=== PATIENT | female | born 1990 | race American Indian/Alaskan Native ===

== ENCOUNTER 2018-06-07 19:23 | Outpatient (CLI) | payer SELFPAY ==
[2018-06-07] MEDS ORDERED: LACTATED RINGERS 1,000 ML IV ONE (19:28)
[2018-06-07 19:41] VITALS: BP 120/67
[2018-06-07 19:58] LABS: Bacteria,Urine 1+ /HPF (Negative); Bilirubin,Urine NEG (Negative); Blood,Urine SM (Negative); Color,Urine Yellow (Yellow); Mucus,Urine 3+ /HPF; Urobilinogen,Urine < 2.0 mg/dL (<2.0)
[2018-06-07 20:15] LABS: Benzodiazepines Screen,Urine PRESUMPTIVE NEGATIVE; Cannabinoid Screen,Urine PRESUMPTIVE NEGATIVE; Methadone Screen,Urine PRESUMPTIVE NEGATIVE; Opiate Screen,Urine PRESUMPTIVE NEGATIVE
[2018-06-07 20:40] LABS: Amphetamine Screen,Urine PRESUMPTIVE POSITIVE; Cocaine Screen,Urine PRESUMPTIVE POSITIVE
[2018-06-07] MEDS ORDERED: ceFAZolin 2 GM in NACL 0.9% 100 ML IV ONE (21:18)
== END 2018-06-07 23:45 | disposition home or self-care (01) ==
LOC: TRG 19:23
PROVIDERS: ATTEND Obstetrics & Gynecology
DX: O47.03 False labor before 37 completed weeks of gestation, third trimester (principal); O10.913 Unspecified pre-existing hypertension complicating pregnancy, third trimester; O99.513 Diseases of the respiratory system complicating pregnancy, third trimester; Z3A.30 30 weeks gestation of pregnancy
CPT/HCPCS: 59025; 80307; 81001; 96360; 96365; J0690